=== PATIENT | male | born 1995 | race Caucasian/White ===

== ENCOUNTER 2016-12-01 17:39 | Emergency (ER) | payer OTHER ==
[2016-12-01 17:56] VITALS: RESP 16
[2016-12-01] MEDS ORDERED: TDAP ADULT 0.5 ML INJ (BOOSTRIX) IM ONE (18:02)
[2016-12-01] MEDS ORDERED: ceFAZolin 1 GM VIAL IVP ONE (18:02)
--- NOTE | 2016-12-01 18:02 | EDPHY ---
H & P Stated Complaint: Open fx L 5th finger Source: Patient Exam Limitations: No limitations - Personal History Current Tetanus Diphtheria and Acellular Pertussis (TDAP): Unsure - Medical/Surgical History Other PMH: neg - Social History Smoking Status: Never smoked Time Seen by Provider: 12/01/16 18:01 HPI/ROS: CHIEF COMPLAINT: left open pinky fracture HISTORY OF PRESENT ILLNESS: 21-year-old otherwise healthy male presents emergency department with an open fracture to his left pinky from diving while playing flag football today. Patient reports he hit his left hand to the ground and felt a pop. Patient is [id number], he reports tingling to the tip of his finger, he denies head strike, no neck pain, back pain, chest or abdomen pain. He denies previous injury to this finger, he has no other complaints. Tetanus is not up-to-date. REVIEW OF SYSTEMS: A comprehensive 10 point review of systems is otherwise negative aside from elements mentioned in the history of present illness. (Rena Vergara) - Physical Exam Exam: GEN: Awake, alert, oriented, no acute distress RESP: nl resp effort MSK: Left pinky finger with open fracture to proximal phalanx, bone fragment sticking out of dorsal skin, 2 point discrimination intact, cap refill less than 2 seconds SKIN: 0.5 cm laceration to dorsal aspect of left pinky finger over proximal phalanx (Rena Vergara) Constitutional: Initial Vital Signs Temperature (C) 36.7 C 12/01/16 17:53 Heart Rate 80 12/01/16 17:53 Respiratory Rate 16 12/01/16 17:53 Blood Pressure 126/71 H 12/01/16 17:53 O2 Sat (%) 97 12/01/16 17:53 O2 Delivery Mode Room Air Allergies/Adverse Reactions: No Known Allergies Allergy (Unverified 12/01/16 17:56) Home Medications: Medication Instructions Recorded Cephalexin [Keflex] 500 mg PO TID 5 Days 12/01/16 oxyCODONE/APAP 5/325 [Percocet 1 - 2 tab PO Q6H PRN #12 tab 12/01/16 5/325] Medical Decision Making - Diagnostics Imaging: Left pinky finger x-ray independently reviewed by me open fracture of distal aspect of proximal phalanx left pinky finger Impression: Open fracture of the left fifth finger proximal phalanx with associated oblique distal metaphyseal neck fracture. Dictated By: Italo Webb Post reduction x-ray- Impression: Improved alignment following reduction. Dictated By: Roger Breen MD (Rena Vergara) Procedures: Procedure: Fracture reduction. Indication: Open fracture proximal phalanx left pinky finger Risks, benefits, alternatives discussed with the patient. Consent was obtained. The left pinky finger was anesthetized with 4 mL of 0.5% Marcaine without epinephrine mixed with 1% lidocaine without epinephrine, good anesthesia was obtained. Finger was reduced with manual traction without complications. Patient tolerated the procedure well. X-ray obtained shows good alignment of fracture. The procedure was performed by myself. Procedure: Laceration repair. Verbal consent was obtained from the patient. The 7 mm laceration on the left pinky finger was anesthetized using 1% lidocaine without epinephrine mixed with 0.5% bupivacaine without epinephrine digital block. The wound was carefully irrigated by the emergency department environmental compliance technician. Next, the wound was prepped and draped in sterile fashion and explored to its base with a gloved finger. The patient has an open fracture of his proximal phalanx, distal aspect The wound was repaired with 5.0 Prolene, 2. Simple interrupted sutures. The wound repair was simple. The procedure was performed by myself. Tetanus and antibiotic status were addressed. A ulnar gutter Ortho Glass splint was applied. After application of the splint , I returned and re-examined the patient. The splint was adequately immobilizing the joint. The patients circulation and sensation were intact distal to the splint. (Rena Vergara) ED Course/Re-evaluation: 630pm-Dr. Pina with hand surgery paged. She said she would look at the x-rays and, back. 720pm-Dr. Pina paged again. She was having troubles locking into the computer reviewed the x-rays, pictures were sent to her to evaluate. She called me back and recommended reducing the fracture, irrigating it with 300 mL of normal saline, placing sutures and putting the patient in an ulnar gutter splint to follow up with her in office. IV was established, patient was given 1 g of Ancef, tetanus was updated. Patient was discharged with a prescription for Percocet and Keflex. He is discharged with an ulnar gutter splint and agrees to follow up with the hand surgeon. He will call 1st thing tomorrow morning. He is given return precautions for pain that is not controlled, any neurovascular compromise. ( Rena Vergara) - Data Points Medications Given: Discontinued Medications Cefazolin Sodium (Ancef) 1 gm IVP EDNOW ONE PRN Reason: Protocol Stop: 12/01/16 18:03 Last Admin: 12/01/16 18:22 Dose: 1 gm Cephalexin HCl (Keflex) 500 mg PO EDNOW ONE PRN Reason: Protocol Stop: 12/01/16 21:20 Last Admin: 12/01/16 21:19 Dose: 500 mg Diphtheria/Tetanus/Acell Pertussis (Boostrix) 0.5 ml IM .ONCE ONE Stop: 12/01/16 18:03 Last Admin: 12/01/16 18:22 Dose: 0.5 ml Sodium Chloride (Ns) 1,000 mls @ 0 mls/hr IV ONCE ONE PRN Reason: Wide Open Stop: 12/01/16 18:38 Last Admin: 12/01/16 18:47 Dose: 1,000 mls Ibuprofen (Motrin) 600 mg PO EDNOW ONE Stop: 12/01/16 20:01 Last Admin: 12/01/16 21:17 Dose: 600 mg Oxycodone/Acetaminophen (Percocet 5/325) 1 tab PO EDNOW ONE Stop: 12/01/16 20:01 Last Admin: 12/01/16 21:17 Dose: 1 tab Oxycodone/Acetaminophen (Percocet 5/325mg Prepack#4) 1 btl TAKEHOME EDNOW ONE Stop: 12/01/16 20:02 Last Admin: 12/01/16 21:18 Dose: 1 btl Departure - Departure Disposition: Home, Routine, Self-Care Clinical Impression: Open fracture of proximal phalanx of digit of left hand Condition: Good Instructions: Finger Fracture (ED) Additional Instructions: Rest, ice, elevate, take 600 mg of ibuprofen every 8 hours with food, take Percocet for severe pain. Keep your splint clean and dry and in place. Call the hand surgeon 1st thing tomorrow morning to schedule an appointment to be seen. Take your antibiotics as prescribed. Return to the emergency department for pain that is not controlled, any other questions or concerns. Referrals: Vanna Pina MD [Medical Doctor] - As per Instructions (Hand surgeon on-call) Prescriptions: Cephalexin [Keflex] 500 mg PO TID 5 Days oxyCODONE/APAP 5/325 [Percocet 5/325] 1 - 2 tab PO Q6H PRN #12 tab PRN Reason: Pain, Severe
[2016-12-01] MEDS ORDERED: CEFAZOLIN 1 GM/DEXTROSE/50 ML BAG IV ONE (18:07)
[2016-12-01] MEDS ORDERED: NS 1,000 ML IV ONE (18:37)
--- NOTE | 2016-12-01 18:46 | DX ---
Left Fifth Finger, 4 Views at 1813 hours History: Trauma, pain, open fracture. Findings:: Oblique fracture of the left fifth finger proximal phalanx along the distal metaphyseal ne ck region with complete volar dislocation of the distal fragment 10 mm and open fracture with the bon e extending through the soft tissues dorsally. Impression: Open fracture of the left fifth finger proximal phalanx with associated oblique distal me taphyseal neck fracture.
[2016-12-01] MEDS ORDERED: IBUPROFEN 600 MG TAB PO ONE (20:00)
[2016-12-01] MEDS ORDERED: OXYCODONE/APAP 5/325 TAB PO ONE (20:00)
[2016-12-01] MEDS ORDERED: OXYCODONE/APAP 5/325MG PREPACK#4 BTL TAKEHOME ONE (20:01)
--- NOTE | 2016-12-01 20:25 | DX ---
3 views left fifth finger Reason for examination: Postreduction follow-up; comparison study performed earlier today at 1813 [facility]. Findings: A splint is in place. There is been reduction of the open fracture involving the proximal p halanx of the left fifth digit. Alignment is improved with persistent displacement and palmar angulat ion of the distal fragment. Impression: Improved alignment following reduction.
[2016-12-01] MEDS ORDERED: CEPHALEXIN 500 MG CAP PO ONE ×2 (20:45→21:19)
[2016-12-01 21:21] VITALS: BP 125/73; PULSE 76; TEMP 98.2; O2SAT 98
== END 2016-12-01 21:19 | disposition home or self-care (01) ==
PROC: 0PSVXZZ Reposition Left Finger Phalanx, External Approach (ICD-10-PCS; principal; 2016-12-01)
PROC: 0HQGXZZ Repair Left Hand Skin, External Approach (ICD-10-PCS; 2016-12-01)
DX: S62.617B Displaced fracture of proximal phalanx of left little finger, initial encounter for open fracture (principal); Z23 Encounter for immunization; W22.8XXA Striking against or struck by other objects, initial encounter; Y92.89 Other specified places as the place of occurrence of the external cause; Y93.61 Activity, american tackle football
CPT/HCPCS: 96374; J0690